=== PATIENT | female | born 1970 | race Native Hawaiian/Other Pacific Islander ===

== ENCOUNTER 2017-05-03 19:31 | Observation (INO) | payer MEDICAID ==
[2017-05-03 19:31] VITALS: BMI 23.6
--- NOTE | 2017-05-03 20:26 | ED PDOC ---
Arrival/HPI - General Chief Complaint: Chest Pain Time Seen by Provider: 05/03/17 19:55 Historian: Patient, Family (Daughter) - History of Present Illness Narrative History of Present Illness (Text): 05/03/17 20:23 A 46 year old female whose past medical history includes hypothyroidism, presents to the emergency department with 1 day duration chest pain. The patient states that the pain started last night, and it has been intermittent since. The patient denies fevers, chills, headache, dizziness, chest pain, shortness of breath, dyspnea on exertion, cough, abdominal pain, nausea, vomiting, diarrhea, back pain, neck pain, urinary/bowel changes, or any other complaint. PMD: Dr. Timmons Time/Duration: Prior to Arrival Symptom Onset: Sudden Symptom Course: Unchanged Activities at Onset: Rest, Light Context: Treating Engineer Helper Past Medical History - Provider Review Nursing Documentation Reviewed: Yes - Infectious Disease Hx of Infectious Diseases: None - Neurological Other/Comment: trigeminal nerve pain - Psychiatric Hx Substance Use: No - Surgical History Hx Section: Yes Hx Cholecystectomy: Yes - Anesthesia Hx Anesthesia: Yes Hx Anesthesia Reactions: No Hx Malignant Hyperthermia: No Family/Social History - Physician Review Nursing Documentation Reviewed: Yes Family/Social History: No Known Family HX Smoking Status: Never Smoked Hx Alcohol Use: Yes Hx Substance Use: No Allergies/Home Meds Allergies/Adverse Reactions: Allergies No Known Allergies Allergy (Verified 09/04/15 12:28) Home Medications: Home Meds Medication Instructions Recorded Confirmed OXcarbazepine [Trileptal] 150 mg PO TID 08/06/15 09/04/15 Review of Systems - Physician Review All systems were reviewed & negative as marked: Yes - Review of Systems Constitutional: absent: Fevers, Night Sweats ENT: absent: Sore Throat Respiratory: absent: SOB, Cough Cardiovascular: absent: Chest Pain, CINTRON Gastrointestinal: absent: Abdominal Pain, Stool Changes, Diarrhea, Nausea, Vomiting Genitourinary Female: absent: Urine Output Changes Musculoskeletal: absent: Back Pain, Neck Pain Neurological: absent: Headache, Dizziness Physical Exam Vital Signs Reviewed: Yes Vital Signs Temp Pulse Resp BP Pulse Ox 05/04/17 00:06 61 05/03/17 23:31 76 16 115/76 99 05/03/17 19:52 98.4 F 64 20 107/77 100 Temperature: Afebrile Blood Pressure: Normal Pulse: Regular Respiratory Rate: Normal Appearance: Positive for: Well-Appearing, Non-Toxic, Comfortable Pain Distress: None Mental Status: Positive for: Alert and Oriented X 3 - Systems Exam Head: Present: Atraumatic, Normocephalic Pupils: Present: PERRL Extroacular Muscles: Present: EOMI Conjunctiva: Present: Normal Mouth: Present: Moist Mucous Membranes Neck: Present: Normal Range of Motion Respiratory/Chest: Present: Clear to Auscultation, Good Air Exchange. No: Respiratory Distress, Accessory Muscle Use Cardiovascular: Present: Regular Rate and Rhythm, Normal S1, S2. No: Murmurs Abdomen: Present: Normal Bowel Sounds. No: Tenderness, Distention, Peritoneal Signs Back: Present: Normal Inspection Upper Extremity: Present: Normal Inspection. No: Cyanosis, Edema Lower Extremity: Present: Normal Inspection. No: Edema Neurological: Present: GCS=15, CN II-XII Intact, Speech Normal Skin: Present: Warm, Dry, Normal Color. No: Rashes Psychiatric: Present: Alert, Oriented x 3, Normal Insight, Normal Concentration Medical Decision Making ED Course and Treatment: 05/03/17 20:28 Impression: A 46 year old female presents to the emergency department with 1 day duration chest pain. Plan: -- EKG -- Labs -- Chest X-ray -- Aspirin -- Reassess and disposition Progress Notes: 05/03/17 23:58 Case was d/w certified medical records coder and house MD Dillon after speaking with .Accepts to the hospitalist service. - Lab Interpretations Lab Results: 05/03/17 21:15 05/03/17 21:15 Lab Results 05/03/17 21:15: WBC 6.3, RBC 4.27, Hgb 13.6, Hct 40.4, MCV 94.6, MCH 31.9, MCHC 33.7, RDW 12.7, Plt Count 214, MPV 9.8 05/03/17 21:15: Free T4 0.85, TSH 3rd Generation 3.84 05/03/17 21:15: Sodium 141, Potassium 3.8, Chloride 103, Carbon Dioxide 26, Anion Gap 16, BUN 15, Creatinine 0.6 L, Est GFR ( Amer) > 60, Est GFR ( Non-Af Amer) > 60, Random Glucose 94, Calcium 9.0, Total Bilirubin 0.4, AST 32, ALT 60 H, Alkaline Phosphatase 49, Lactate Dehydrogenase 405, Total Creatine Kinase 172, Troponin I < 0.01, Total Protein 7.4, Albumin 4.4, Globulin 3.0, Albumin/Globulin Ratio 1.5 05/03/17 21:15: PT 10.0, INR 0.93, APTT 25.7 - RAD Interpretation Narrative RAD Interpretations (Text): 05/03/17 23:43 CXR- No acute process Radiology Orders: 05/03/17 21:03 CHEST PORTABLE [RAD] Stat Site Surveyor: ED Physician - EKG Interpretation EKG Interpretation (Text): 05/03/17 23:43 EKG-NSR@65 normal interval,normal EKG Interpreted by ED Physician: Yes Type: 12 lead EKG - Medication Orders Current Medication Orders: Aspirin (Aspirin Chewable) 324 mg PO DAILY KATIE Pantoprazole Sodium (Protonix Ec Tab) 40 mg PO 0600 KATIE Discontinued Medications Aspirin (Aspirin) 325 mg PO ONCE STA Stop: 05/03/17 21:05 Last Admin: 05/03/17 21:20 Dose: 325 mg Pneumococcal Polyvalent Vaccine (Pneumovax 23 Vaccine) 0.5 ml IM .ONCE ONE Stop: 05/04/17 03:05 Disposition/Present on Arrival - Present on Arrival Any Indicators Present on Arrival: No History of DVT/PE: No History of Uncontrolled Diabetes: No Urinary Catheter: No History of Decub. Ulcer: No History Surgical Site Infection Following: None - Disposition Have Diagnosis and Disposition been Completed?: Yes Diagnosis: Chest pain Disposition: HOSPITALIZED Disposition Time: 23:58 Patient Plan: Observation Patient Problems: Current Active Problems Problem Status Onset Chest pain Acute Condition: STABLE
[2017-05-03 21:29] LABS: HEMATOCRIT 40.4 % (36.0-48.0); MEAN CELL VOLUME 94.6 fl (80.0-105.0); MEAN CORPUSCULAR HEMOGLOBIN 31.9 pg (25.0-35.0); MEAN CORPUSCULAR HGB CONC 33.7 g/dl (31.0-37.0); MEAN PLATELET VOLUME 9.8 fl (7.0-11.0); RED CELL DISTRIBUTION WIDTH 12.7 % (11.5-14.5); WHITE BLOOD COUNT 6.3 10^3/ul (4.5-11.0)
[2017-05-03 21:38] LABS: ALB/GLOB RATIO 1.5 (1.1-1.8); ALKALINE PHOSPHATASE 49 U/L (38-126); ALT/SGPT 60 U/L (7-56); AST/SGOT 32 U/L (14-36); BILIRUBIN,TOTAL 0.4 mg/dL (0.2-1.3); BLOOD UREA NITROGEN 15 mg/dL (7-21); CARBON DIOXIDE 26 mmol/L (21-33); CHLORIDE 103 mmol/L (98-107); GFR AFRICAN-AMERICAN > 60; GLUCOSE,RANDOM 94 mg/dL (70-110); POTASSIUM 3.8 mmol/L (3.6-5.0); SODIUM 141 mmol/L (132-148); TOTAL PROTEIN 7.4 g/dL (5.8-8.3)
[2017-05-03 21:46] LABS: INR 0.93 (0.93-1.08); PARTIAL THROMBOPLASTIN TIME 25.7 Seconds (23.7-30.8)
[2017-05-03 21:50] LABS: TROPONIN I < 0.01 ng/mL
[2017-05-03 22:41] LABS: FREE T4 0.85 ng/dL (0.78-2.19)
[2017-05-03 22:55] LABS: THYROID STIMULATING HORMONE 3.84 mIU/mL (0.46-4.68)
[2017-05-04 01:23] LABS: CHOLESTEROL 205 mg/dL (130-200)
--- NOTE | 2017-05-04 01:30 | CP.PCM.HP ---
<Jose Luis Ernst - Last Filed: 05/04/17 01:40> History of Present Illness - History of Present Illness History of Present Illness: H/P For IM - TKS DO, PGY-1 CC: Chest pain HPI: 46 F w PMHx of facial pain presents with 2 day duration of substernal, "squeezing," non-radiating CP of 7/10 severity that is made better by ASA and is associated with diaphoresis. Pt states that she was here at [facility] earlier in the day for the same complaint, but that her CP got better so she went home. When the CP came back, she got scared and returned to the ED. She states that she was at rest when the pain started. Patient states she has not had this kind of pain before. She further denies a history of AMI or other heart conditions. Pt denies f/ch/sob/n/v/d/dysuria/frequency/urgency/hematuria/hematochezia/ hematemesis PSHx: Pt denies PMHx: Facial pain All: NKDA SocHx: Pt denies tobacco, illicits; + EtOH Hosp: Pt was at the ED for the same complaint last night FamHx: DM Meds: See SEP ROS: Constitutional: pt denies fever, chills, generalized weakness Head and neck: +pt has hx of facial pain ENT: pt denies dysphagia, otalgia, hearing deficit, rhinorrhea Eyes: pt denies sudden loss of vision, diplopia, blurred vision MSK: pt denies muscle stiffness, joint pain, extremity cramping Cardio: +see hpi; pt denies sob, heart murmur Pulm: pt denies cough, hemoptysis, wheeze GI: pt denies loss of appetite, abdominal pain, constipation, melena, n/v/d : pt denies burning on urination, urinary frequency, hematuria, urinary urgency Neuro: pt denies paresis, paresthesia, dizziness, kern, numbness, tingling Derm: pt denies skin changes, lesions, nail changes Endo: pt denies intolerance to heat/cold, diaphoresis, night sweats, polydipsia Psych: pt denies anxiety, depression, mood changes Present on Admission - Present on Admission Any Indicators Present on Admission: No Past Patient History - Infectious Disease Hx of Infectious Diseases: None - Past Social History Smoking Status: Never Smoked - NEUROLOGICAL Other/Comment: trigeminal nerve pain - PSYCHIATRIC Hx Substance Use: No - SURGICAL HISTORY Hx Section: Yes Hx Cholecystectomy: Yes - ANESTHESIA Hx Anesthesia: Yes Hx Anesthesia Reactions: No Hx Malignant Hyperthermia: No Meds Allergies/Adverse Reactions: Allergies Allergy/AdvReac Type Severity Reaction Status Date / Time No Known Allergies Allergy Verified 09/04/15 12:28 Physical Exam - Additional Findings Additional findings: Phys Exam: VS as below Constitutional: a&o x 4, nad Head and Neck: neck supple, no jvd, trachea midline, carotid midline, no cervical/head mass Eyes: merary, nonicteric sclera, eom intact ENT: auditory acuity grossly intact, throat not congested, no nasal deformity Cardio: rrr, no m/r/g, no carotid bruit, nml s1, s2 Pulm: no accessory muscle use, equal nml breath sounds bilaterally, ctab Abd: s/nt/nd, nbs x 4 q, no palpable masses Derm: no rashes, no ulcers, no lesions Extr: no edema, no cyanosis, no calf tenderness, no lesions, no varicosities Neuro: cn II-XII grossly intact, ue and le 5/5 muscle strength bilaterally, no los ue, le bilaterally and core Results - Vital Signs Recent Vital Signs: Last Vital Signs Temp 98.4 F 05/03/17 19:52 Pulse 76 05/03/17 23:31 Resp 16 05/03/17 23:31 BP 115/76 05/03/17 23:31 Pulse Ox 99 05/03/17 23:31 - Labs Result Diagrams: 05/03/17 21:15 05/03/17 21:15 Labs: Laboratory Results - last 24 hr 05/03/17 05/03/17 05/03/17 21:15 21:15 21:15 WBC RBC Hgb Hct MCV MCH MCHC RDW Plt Count MPV PT 10.0 INR 0.93 APTT 25.7 Sodium 141 Potassium 3.8 Chloride 103 Carbon Dioxide 26 Anion Gap 16 BUN 15 Creatinine 0.6 L Est GFR ( Amer) > 60 Est GFR (Non-Af Amer) > 60 Random Glucose 94 Calcium 9.0 Total Bilirubin 0.4 AST 32 ALT 60 H Alkaline Phosphatase 49 Lactate Dehydrogenase 405 Total Creatine Kinase 172 Troponin I < 0.01 Total Protein 7.4 Albumin 4.4 Globulin 3.0 Albumin/Globulin Ratio 1.5 Triglycerides Cholesterol HDL Cholesterol Free T4 0.85 TSH 3rd Generation 3.84 05/03/17 05/04/17 21:15 01:00 WBC 6.3 RBC 4.27 Hgb 13.6 Hct 40.4 MCV 94.6 MCH 31.9 MCHC 33.7 RDW 12.7 Plt Count 214 MPV 9.8 PT INR APTT Sodium Potassium Chloride Carbon Dioxide Anion Gap BUN Creatinine Est GFR ( Amer) Est GFR (Non-Af Amer) Random Glucose Calcium Total Bilirubin AST ALT Alkaline Phosphatase Lactate Dehydrogenase Total Creatine Kinase Troponin I Total Protein Albumin Globulin Albumin/Globulin Ratio Triglycerides 104 Cholesterol 205 H HDL Cholesterol 53 Free T4 TSH 3rd Generation Assessment & Plan - Assessment and Plan (Free Text) Assessment: A/P 46 F with two day duration of CP. R/o ACS Chest Pain likely 2/2 Anxiety VS MSK. R/o ACS - Trend Tropes/EKG - TSH, Lipid, A1C - AM Labs: CMP, CBC, Mg, Phos - ECHO - Cardio C/s: Elkind - Daily ASA Hx/O Facial Pain - Unclear: patient states that she has seen her doctor here, Dr. Timmons, and a doctor in [place], for this - Consider a neuro c/s - patient may have Trigeminal Neuralgia, because she states that she is taking Carbamazepine and Keppra but has no hx of seizures - Confirm medications with pharmacy in the AM PPX - SCDs/Protonix TKS DO PGY 1 d/w Dr. Grimes <Lisa Grimes - Last Filed: 05/04/17 03:00> Results - Vital Signs Recent Vital Signs: Last Vital Signs Temp 98.4 F 05/03/17 19:52 Pulse 76 05/03/17 23:31 Resp 16 05/03/17 23:31 BP 115/76 05/03/17 23:31 Pulse Ox 99 05/03/17 23:31 - Labs Result Diagrams: 05/03/17 21:15 05/03/17 21:15 Labs: Laboratory Results - last 24 hr 05/04/17 05/04/17 00:05 01:00 Troponin I < 0.01 Triglycerides 104 Cholesterol 205 H LDL Cholesterol Direct 134 H HDL Cholesterol 53 Attending/Attestation - Attestation I have personally seen and examined this patient.: Yes I have fully participated in the care of the patient.: Yes I have reviewed all pertinent clinical information: Yes Notes (Text): 05/04/17 02:59 Patient was seen when she was in room # 9 in the ER. Agree with history, physical examination, assessment and plan. Noticed sinus bradycardia on monitor when she was in the ER.
[2017-05-04] MEDS ORDERED: Pneumococcal 23-Valent Vaccine IM ONE (03:04)
[2017-05-04] MEDS ORDERED: Pantoprazole 40 mg EC Tab PO SCH (06:00)
[2017-05-04] MEDS ORDERED: Pantoprazole 40 mg EC Tab PO ONE (06:10)
[2017-05-04 06:31] VITALS: BP 91/53; RESP 18; TEMP 98.5; O2SAT 98
[2017-05-04 07:34] LABS: BASO # 0.01 K/mm3 (0.0-2.0); BASO % 0.2 % (0.0-3.0); EOS # 0.1 (0.0-0.7); EOS % 1.6 % (1.5-5.0); GRAN # 2.34 (1.4-6.5); GRAN % 47.9 % (50.0-68.0); HEMATOCRIT 37.2 % (36.0-48.0); LYMPH % 41.1 % (22.0-35.0); MEAN CELL VOLUME 93.9 fl (80.0-105.0); MEAN CORPUSCULAR HEMOGLOBIN 31.3 pg (25.0-35.0); MEAN CORPUSCULAR HGB CONC 33.3 g/dl (31.0-37.0); MEAN PLATELET VOLUME 9.9 fl (7.0-11.0); MONO # 0.5 (0.1-0.6); MONO % 9.2 % (1.0-6.0); RED CELL DISTRIBUTION WIDTH 12.5 % (11.5-14.5); WHITE BLOOD COUNT 4.9 10^3/ul (4.5-11.0)
[2017-05-04 08:00] LABS: ALB/GLOB RATIO 1.4 (1.1-1.8); ALKALINE PHOSPHATASE 42 U/L (38-126); ALT/SGPT 44 U/L (7-56); AST/SGOT 31 U/L (14-36); BILIRUBIN,TOTAL 0.6 mg/dL (0.2-1.3); BLOOD UREA NITROGEN 12 mg/dL (7-21); CALCIUM 8.4 mg/dL (8.4-10.5); CARBON DIOXIDE 27 mmol/L (21-33); CHLORIDE 106 mmol/L (98-107); GFR AFRICAN-AMERICAN > 60; GLUCOSE,RANDOM 93 mg/dL (70-110); PHOSPHOROUS 3.5 mg/dL (2.5-4.5); POTASSIUM 3.4 mmol/L (3.6-5.0); SODIUM 140 mmol/L (132-148)
[2017-05-04 08:02] LABS: TROPONIN I < 0.01 ng/mL
[2017-05-04 09:10] VITALS: PULSE 74
--- NOTE | 2017-05-04 10:06 | RAD ---
HISTORY: Chest pain Technique: Single view portable semi erect @ 21:15 COMPARISON: No prior. FINDINGS: LUNGS: No active pulmonary disease. PLEURA: No significant pleural effusion identified, no pneumothorax apparent. CARDIOVASCULAR: No radiographic findings to suggest acute or significant cardiovascular disease. OSSEOUS STRUCTURES: No significant abnormalities. VISUALIZED UPPER ABDOMEN: Normal. OTHER FINDINGS: None. IMPRESSION: No active disease. Please note: No preliminary report/ innterpretation of this examination provided by emergency department personnel.
--- NOTE | 2017-05-04 13:20 | CP.PCM.DIS ---
<Arben Moore - Last Filed: 05/04/17 13:14> Provider - Provider Date of Admission: 05/04/17 00:00 Attending physician: Juliano Canales MD Time Spent in preparation of Discharge (in minutes): 45 Diagnosis - Discharge Diagnosis (1) Chest pain Status: Resolved (2) Neuralgia Status: Chronic Hospital Course - Lab Results Lab Results: Most Recent Lab Values WBC 4.9 10^3/ul (4.5-11.0) D 05/04/17 05:00 RBC 3.96 10^6/uL (3.5-6.1) 05/04/17 05:00 Hgb 12.4 g/dL (12.0-16.0) 05/04/17 05:00 Hct 37.2 % (36.0-48.0) 05/04/17 05:00 MCV 93.9 fl (80.0-105.0) 05/04/17 05:00 MCH 31.3 pg (25.0-35.0) 05/04/17 05:00 MCHC 33.3 g/dl (31.0-37.0) 05/04/17 05:00 RDW 12.5 % (11.5-14.5) 05/04/17 05:00 Plt Count 196 10^3/uL (120.0-450.0) 05/04/17 05:00 MPV 9.9 fl (7.0-11.0) 05/04/17 05:00 Gran % 47.9 % (50.0-68.0) L 05/04/17 05:00 Lymph % (Auto) 41.1 % (22.0-35.0) H 05/04/17 05:00 [place] % (Auto) 9.2 % (1.0-6.0) H 05/04/17 05:00 Eos % (Auto) 1.6 % (1.5-5.0) 05/04/17 05:00 Baso % (Auto) 0.2 % (0.0-3.0) 05/04/17 05:00 Gran # 2.34 (1.4-6.5) 05/04/17 05:00 Lymph # 2.0 (1.2-3.4) 05/04/17 05:00 [place] # 0.5 (0.1-0.6) 05/04/17 05:00 Eos # 0.1 (0.0-0.7) 05/04/17 05:00 Baso # 0.01 K/mm3 (0.0-2.0) 05/04/17 05:00 PT 10.0 Seconds (9.9-11.8) 05/03/17 21:15 INR 0.93 (0.93-1.08) 05/03/17 21:15 APTT 25.7 Seconds (23.7-30.8) 05/03/17 21:15 Sodium 140 mmol/L (132-148) 05/04/17 07:28 Potassium 3.4 mmol/L (3.6-5.0) L 05/04/17 07:28 Chloride 106 mmol/L (98-107) 05/04/17 07:28 Carbon Dioxide 27 mmol/L (21-33) 05/04/17 07:28 Anion Gap 10 (10-20) 05/04/17 07:28 BUN 12 mg/dL (7-21) 05/04/17 07:28 Creatinine 0.7 mg/dL (0.7-1.2) 05/04/17 07:28 Est GFR ( Amer) > 60 05/04/17 07:28 Est GFR (Non-Af Amer) > 60 05/04/17 07:28 Random Glucose 93 mg/dL (70-110) 05/04/17 07:28 Calcium 8.4 mg/dL (8.4-10.5) 05/04/17 07:28 Phosphorus 3.5 mg/dL (2.5-4.5) 05/04/17 07:28 Magnesium 2.0 mg/dL (1.7-2.2) 05/04/17 07:28 Total Bilirubin 0.6 mg/dL (0.2-1.3) 05/04/17 07:28 AST 31 U/L (14-36) 05/04/17 07:28 ALT 44 U/L (7-56) 05/04/17 07:28 Alkaline Phosphatase 42 U/L (38-126) 05/04/17 07:28 Lactate Dehydrogenase 405 U/L (333-699) 05/03/17 21:15 Total Creatine Kinase 172 U/L (35-230) 05/03/17 21:15 Troponin I < 0.01 ng/mL 05/04/17 07:28 Total Protein 6.0 g/dL (5.8-8.3) 05/04/17 07:28 Albumin 3.5 g/dL (3.0-4.8) 05/04/17 07:28 Globulin 2.5 gm/dL 05/04/17 07:28 Albumin/Globulin Ratio 1.4 (1.1-1.8) 05/04/17 07:28 Triglycerides 104 mg/dL (35-160) 05/04/17 01:00 Cholesterol 205 mg/dL (130-200) H 05/04/17 01:00 LDL Cholesterol Direct 134 mg/dL (0-129) H 05/04/17 01:00 HDL Cholesterol 53 mg/dL (29-60) 05/04/17 01:00 Free T4 0.85 ng/dL (0.78-2.19) 05/03/17 21:15 TSH 3rd Generation 3.84 mIU/mL (0.46-4.68) 05/03/17 21:15 - Hospital Course Hospital Course: 46 F with PMH of trigeminal neuralgia presents with 2 day duration of substernal , "squeezing," non-radiating CP of 7/10 severity that is made better by ASA and is associated with diaphoresis. Pt was admitted for chest pain and had ACS ruled out after troponins were negative x3. Pt had an EKG showing sinus rhythm with no ST abnormalities. Pt felt well with minimal chest pain reproducible on palpation. Pt also noted mild facial pain which she states is her trigeminal neuralgia which she has had for years. Pt will be referred to neurology, Dr. العراقي for further treatment of trigeminal neuralgia. Pt will follow up with PMD within 1 week. Discharge Exam - Head Exam Head Exam: ATRAUMATIC, NORMAL INSPECTION, NORMOCEPHALIC - Respiratory Exam Respiratory Exam: NORMAL BREATHING PATTERN, UNREMARKABLE. absent: Rales, Rhonchi - Cardiovascular Exam Cardiovascular Exam: RRR, +S1, +S2 Additional comments: Reproducible chest pain palpation - GI/Abdominal Exam GI & Abdominal Exam: Normal Bowel Sounds, Soft. absent: Tenderness - Extremities Exam Extremities exam: normal inspection - Neurological Exam Neurological exam: Alert, CN II-XII Intact, Oriented x3 - Psychiatric Exam Psychiatric exam: Normal Affect, Normal Mood - Skin Skin Exam: Intact, Normal Color, Warm Discharge Plan - Discharge Medications Prescriptions: Atorvastatin [Lipitor] 20 mg PO DIN #30 tab - Follow Up Plan Condition: STABLE Disposition: HOME/ ROUTINE Instructions: Chest Pain (GEN) Additional Instructions: 1. Follow up with Dr. Timmons in 3 days. 2. Follow up with Cardiology as outpatient as needed. 3. Low cholesterol diet. 4. Follow up with Dr. Oneil العراقي, neurology. RN NOTE: Dr. Canales authorizes discharge to home with a new prescription for Lipitor 20 mg and instructions to follow-up with Dr. Timmons in 3 days. Fill this prescription as soon as possible. Please refer to the above instructions. If you should experience any difficult breathing, unusual bleeding, temperature over 100F, severe pain, change in mental status or any worsening of your condition, contact Dr. Timmons or the nearest emergency department immediately. Please check the room and collect all your belongings before leaving. Referrals: Giovany Monreal MD [Staff Provider] - Oneil العراقي MD [Staff Provider] - <Juliano Canales - Last Filed: 05/04/17 13:37> Provider - Provider Date of Admission: 05/04/17 00:00 Attending physician: Juliano Canales MD Hospital Course - Lab Results Lab Results: Most Recent Lab Values WBC 4.9 10^3/ul (4.5-11.0) D 05/04/17 05:00 RBC 3.96 10^6/uL (3.5-6.1) 05/04/17 05:00 Hgb 12.4 g/dL (12.0-16.0) 05/04/17 05:00 Hct 37.2 % (36.0-48.0) 05/04/17 05:00 MCV 93.9 fl (80.0-105.0) 05/04/17 05:00 MCH 31.3 pg (25.0-35.0) 05/04/17 05:00 MCHC 33.3 g/dl (31.0-37.0) 05/04/17 05:00 RDW 12.5 % (11.5-14.5) 05/04/17 05:00 Plt Count 196 10^3/uL (120.0-450.0) 05/04/17 05:00 MPV 9.9 fl (7.0-11.0) 05/04/17 05:00 Gran % 47.9 % (50.0-68.0) L 05/04/17 05:00 Lymph % (Auto) 41.1 % (22.0-35.0) H 05/04/17 05:00 [place] % (Auto) 9.2 % (1.0-6.0) H 05/04/17 05:00 Eos % (Auto) 1.6 % (1.5-5.0) 05/04/17 05:00 Baso % (Auto) 0.2 % (0.0-3.0) 05/04/17 05:00 Gran # 2.34 (1.4-6.5) 05/04/17 05:00 Lymph # 2.0 (1.2-3.4) 05/04/17 05:00 [place] # 0.5 (0.1-0.6) 05/04/17 05:00 Eos # 0.1 (0.0-0.7) 05/04/17 05:00 Baso # 0.01 K/mm3 (0.0-2.0) 05/04/17 05:00 PT 10.0 Seconds (9.9-11.8) 05/03/17 21:15 INR 0.93 (0.93-1.08) 05/03/17 21:15 APTT 25.7 Seconds (23.7-30.8) 05/03/17 21:15 Sodium 140 mmol/L (132-148) 05/04/17 07:28 Potassium 3.4 mmol/L (3.6-5.0) L 05/04/17 07:28 Chloride 106 mmol/L (98-107) 05/04/17 07:28 Carbon Dioxide 27 mmol/L (21-33) 05/04/17 07:28 Anion Gap 10 (10-20) 05/04/17 07:28 BUN 12 mg/dL (7-21) 05/04/17 07:28 Creatinine 0.7 mg/dL (0.7-1.2) 05/04/17 07:28 Est GFR ( Amer) > 60 05/04/17 07:28 Est GFR (Non-Af Amer) > 60 05/04/17 07:28 Random Glucose 93 mg/dL (70-110) 05/04/17 07:28 Calcium 8.4 mg/dL (8.4-10.5) 05/04/17: Phosphorus 3.5 mg/dL (2.5-4.5) 05/04/17: Magnesium 2.0 mg/dL (1.7-2.2) 05/04/17:28 Total Bilirubin 0.6 mg/dL (0.2-1.3) 05/04/17:28 AST 31 U/L (14-36) 05/04/17:28 ALT 44 U/L (7-56) 05/04/17 07:28 Alkaline Phosphatase 42 U/L (38-126) 05/04/17 07:28 Lactate Dehydrogenase 405 U/L (333-699) 05/03/17 21:15 Total Creatine Kinase 172 U/L (35-230) 05/03/17 21:15 Troponin I < 0.01 ng/mL 05/04/17 07:28 Total Protein 6.0 g/dL (5.8-8.3) 05/04/17 07:28 Albumin 3.5 g/dL (3.0-4.8) 05/04/17 07: Globulin 2.5 gm/dL 05/04/17 07: Albumin/Globulin Ratio 1.4 (1.1-1.8) 05/04/17 07:28 Triglycerides 104 mg/dL (35-160) 05/04/17 01:00 Cholesterol 205 mg/dL (130-200) H 05/04/17 01:00 LDL Cholesterol Direct 134 mg/dL (0-129) H 05/04/17 01:00 HDL Cholesterol 53 mg/dL (29-60) 05/04/17 01:00 Free T4 0.85 ng/dL (0.78-2.19) 05/03/17 21:15 TSH 3rd Generation 3.84 mIU/mL (0.46-4.68) 05/03/17 21:15 Attending/Attestation - Attestation I have personally seen and examined this patient.: Yes I have fully participated in the care of the patient.: Yes I have reviewed all pertinent clinical information, including history, physical exam and plan: Yes Notes (Text): 05/04/17 13:34 Attending note; Patient seen and examined with resident. Patient is a 46-year-old female with a past medical history of rib surgery over 20 yrs ago in [facility], trigeminal neuralgia is admitted with atypical chest pain. EKG normal. Cardiac enzymes 3 negative. Reproducible on palpation. Most likely musculoskeletal pain. Echocardiogram and cardiology evaluation requested. The patient did not want to wait for echo. Advised to follow-up with PMD . The patient wishes to follow-up with cardiology of her choice. Referral to cardiology Dr. Monreal and neurology Dr. العراقي given. Advised to come back to the ER for any chest pain, palpitations, shortness of breath. Diagnosis; Atypical chest pain Trigeminal neuralgia Follow up with PMD Dr. Timmons in 2 days.
--- NOTE | 2017-05-04 23:07 | CARD ---
APPROVED REPORT EKG Measurement Heart [id number] <Conclusion> Normal sinus rhythm Normal ECG
== END 2017-05-04 10:11 | disposition home or self-care (01) ==
LOC: ED 19:31 → ERH 05-04 → 2RNO 05-04 01:47
PROVIDERS: ADMIT Internal Medicine; ATTEND Internal Medicine
DX: R07.89 Other chest pain (principal); F41.9 Anxiety disorder, unspecified; G50.0 Trigeminal neuralgia; E03.9 Hypothyroidism, unspecified; Z90.49 Acquired absence of other specified parts of digestive tract; Z83.3 Family history of diabetes mellitus; R40.2412 Glasgow coma scale score 13-15, at arrival to emergency department; R00.1 Bradycardia, unspecified
CPT/HCPCS: 71010; 80053; 80061; 82550; 83036; 83615; 83735; 84100; 84439; 84443; 84484; 85025; 85027; 85610; 85730; 93005; 99285; G0378